=== PATIENT | male | born 1970 | race Caucasian/White ===

== ENCOUNTER → 2016-12-11 | Outpatient (CLI) | payer OTHER ==
--- NOTE | 2016-12-11 11:32 | ECHOS ---
DATE OF SERVICE: 12/11/2016 AGE: 46Y SEX: M HT: 68" WT: 365 lbs. Protocol Derrick: X Others: Stress Echo Stage: 3 Dur. of Exercise: 7:00 *Heart Rate Blood Pressure *Rest: 108 Rest: 160/68 * *Max. Achieved: 152 Maximum BP: 162/79 85% PMHR: 148 100% PMHR: 174 *METS: 8.3 INDICATIONS: Chest pain. MEDICATIONS: Lisinopril, simvastatin, fluoxetine, Flexeril. STRESS DATA: Pretesting physical examination showed a heart rate of 108, pressure is 160/68 mmHg. Baseline EKG showed sinus rhythm. The patient exercised on the treadmill according to Derrick protocol for a total 7 minutes and achieved 8.3 METs with max heart rate was 152, which is about 87% of maximum predicted heart rate. Maximum blood pressure was 162/79 mmHg. Clinically, the patient did not have any symptoms and the EKG did not show any significant ST or T-wave abnormalities consistent with ischemia. Echocardiogram images: On echocardiogram images from parasternal long axis view, parasternal short axis view, apical 4 chambers and apical 2 chamber views were obtained as the baseline images, at the peak of the heart rate, as well as on recovery and the echocardiogram images showed good augmentation of the left ventricular systolic function without any evidence of wall motion abnormalities consistent with ischemia. CONCLUSION: 1. Good exercise capacity. 2. Normal EKG in response to exercise. 3. Normal echocardiogram in response to exercise.
== END | disposition home or self-care (01) ==
LOC: RADNMMAIN 09:48
PROVIDERS: ATTEND Internal Medicine
DX: R07.9 Chest pain, unspecified (principal)
CPT/HCPCS: 93350; 93017; Q9957

== ENCOUNTER → 2017-11-07 | Outpatient (CLI) | payer BC ==
[2017-11-07 08:14] LABS: HCT 49.9 % (39.0-53.0); HGB 16.9 gm/dL (13.0-17.5); MCH 28.1 pg (25.0-35.0); MCHC 33.9 g/dL (31.0-37.0); MCV 82.9 fL (80.0-100.0); Mean Platelet Volume 6.7; Platelet Count 244 k/uL (150-450); RBC 6.02 m/uL (4.30-5.90); RDW 12.5 % (11.5-15.5); WBC 8.3 k/uL (3.8-10.6)
[2017-11-07 08:36] LABS: Anion Gap 12 mmol/L; Blood Urea Nitrogen 17 mg/dL (9-20); Carbon Dioxide 28 mmol/L (22-30); Chloride 101 mmol/L (98-107); Potassium 4.3 mmol/L (3.5-5.1); Sodium 141 mmol/L (137-145)
== END | disposition home or self-care (01) ==
LOC: LABPAT 07:04
PROVIDERS: ATTEND Internal Medicine Cardiovascular Disease
DX: Z01.812 Encounter for preprocedural laboratory examination (principal); I25.10 Atherosclerotic heart disease of native coronary artery without angina pectoris
CPT/HCPCS: 36415; 80051; 82565; 84520; 85027

== ENCOUNTER 2017-11-09 07:53 | Day surgery (SDC) | payer BC, OTHER ==
[~2017-11-09 07:53] MED LIST: ALPRAZolam 0.25 MG TAB PO PRN; ALPRAZolam 0.5 MG TAB PO PRN; ASPIRIN 325 MG TAB PO STA; ATORVASTATIN 80 MG TAB PO STA; NITROGLYCERIN SL TABS 0.4 MG TAB SUBLINGUAL PRN; SODIUM CHLORIDE 0.9% 1,000 ML in EMPTY BAG 1 BAG IV ONE
[2017-11-09 08:25] VITALS: PULSE 95; TEMP 98.5
[2017-11-09] MEDS ORDERED: IV FLUID CONTINUATION 900 ML IV ONE (08:58)
[2017-11-09] MEDS: fentaNYL (PF) 50 MCG/ML 2 ML AMP IV ONE ×2 (09:05→09:20)
[2017-11-09] MEDS ORDERED: MIDAZOLAM 2 MG/2 ML VIAL IV ONE (09:05)
[2017-11-09] MEDS ORDERED: LIDOCAINE 2% INJ 20 MG/ML SQ ONE ×4 (09:06→09:15)
[2017-11-09] MEDS ORDERED: IOHEXOL 350 MG/ML 125ML BOTTLE INJ ONE (09:28)
[2017-11-09] MEDS ORDERED: RX INFO: IV CONTRAST WAS GIVEN 1 EACH MISC MISCELLANE PRN (09:59)
[2017-11-09] MEDS ORDERED: SODIUM CHLORIDE 0.9% 1,000 ML IV SCH (10:00)
--- NOTE | 2017-11-09 10:38 | CC ---
CARDIAC CATHETERIZATION REPORT Referring physician is Dr. Durán. INDICATION: Unstable angina. This is a 47-year-old gentleman who presented to me with recurrent episodes of chest pain and was advised to undergo cardiac catheterization to rule out significant coronary artery disease. PROCEDURE NOTE: After obtaining informed consent, left heart catheterization and coronary angiogram were performed via the right femoral artery using standard Subhash catheters. The patient tolerated the procedure well without any obvious immediate complications. A femoral angiogram was performed and Angio-Seal was deployed for hemostasis. Patient received moderate conscious sedation and total sedation time was 15 minutes. FINDINGS: 1. HEMODYNAMICS: Left ventricular end-diastolic pressure is 14 to 16 mm. There is no significant gradient across the aortic valve. 2. LEFT VENTRICULOGRAM: Left ventriculogram has been performed in JONES position and shows a mildly enlarged left ventricle with normal LV function with an ejection fraction of 55%. 3. ANGIOGRAPHIC DATA. Left Main Coronary Artery: Left main coronary artery is a normal-sized vessel and is free of stenosis. Divides into left anterior descending coronary artery and circumflex coronary artery. LAD and its branches and circumflex coronary artery and its branches are free of significant stenosis. Right coronary artery is a large dominant vessel and is free of significant disease. CONCLUSIONS: 1. Normal coronary arteries. 2. Normal left ventricular end-diastolic pressures. 3. Mildly enlarged left ventricle with normal left ventricular function. MMODL / IJN: [id number] /
[2017-11-09 13:21] VITALS: RESP 20
[2017-11-09 15:27] VITALS: BP 140/69
== END 2017-11-09 15:10 | disposition home or self-care (01) ==
LOC: CATHCVL 07:53
PROVIDERS: ATTEND Internal Medicine Cardiovascular Disease
DX: R07.2 Precordial pain (principal); I10 Essential (primary) hypertension; E78.5 Hyperlipidemia, unspecified; Z88.2 Allergy status to sulfonamides; Z79.899 Other long term (current) drug therapy; Z82.49 Family history of ischemic heart disease and other diseases of the circulatory system
CPT/HCPCS: 93458; C1769 ×2; C1760; C1894; J2001; J2250; J3010; Q9967

== ENCOUNTER 2018-11-11 10:44 | Day surgery (SDC) | payer BC ==
[~2018-11-11 10:44] MED LIST changes: -ALPRAZolam 0.25 MG TAB PO PRN; -ALPRAZolam 0.5 MG TAB PO PRN; -ASPIRIN 325 MG TAB PO STA; -ATORVASTATIN 80 MG TAB PO STA; +LACTATED RINGERS 1,000 ML IV SCH; +LIDOCAINE 1% 20 ML VIAL (10MG/ML) FOR IV START INTRADERMA PRN; -NITROGLYCERIN SL TABS 0.4 MG TAB SUBLINGUAL PRN; -SODIUM CHLORIDE 0.9% 1,000 ML in EMPTY BAG 1 BAG IV ONE
[2018-11-11 11:14] VITALS: TEMP 98.7
[2018-11-11] MEDS ORDERED: fentaNYL (PF) 50 MCG/ML 2 ML AMP ONE (11:26)
[2018-11-11] MEDS ORDERED: LIDOCAINE 1% INJ 10MG/ML (20 ML MDV) ONE (11:26)
[2018-11-11] MEDS ORDERED: PROPOFOL 10 MG/ML 20 ML VIAL IV ONE (11:26)
--- NOTE | 2018-11-11 11:59 | P.PCN ---
Date of Procedure: 11/11/18 Procedure(s) Performed: Procedure: Total colonoscopy. Preoperative diagnosis: Screening for neoplasia, patient has history of polyps. Postoperative diagnosis: 1. Mild diverticulosis with no evidence of acute diverticulitis or strictures. 2. No polyps or tumors seen. Preparation: HalfLytely prep. Sedation: Was provided by anesthesia. Brief clinical history: The patient is a 48-year-old male who is scheduled for this evaluation because of history of polyps. His last exam was in 2011. The patient has tendency to constipation and reports pellet-like stools, but has no abdominal pains or bleeding. His mother had stomach issues but there is no family history of colon cancer. This evaluation is to rule out neoplasia.. Procedure: With the patient on his left lateral decubitus position and after informed consent and adequate sedation, the perianal area was inspected and it did not show any fissures or fistulas. There were no masses felt on digital rectal examination. The Olympus CFH 190L video colonoscope was then inserted in the rectum in the usual fashion and advanced to the cecum. There was occasional small diverticular orifices noted in the sigmoid and on the right side but there was no evidence of acute diverticulitis or strictures. The mucosa appeared healthy. No polyps or tumors were seen. I retroflexed the endoscope in the rectum before the endoscope was withdrawn. The patient tolerated the procedure well. Plan: The patient was reassured. Discussed dietary measures. He will follow up with you as planned and I recommended repeat exam in 5 years.
[2018-11-11 12:30] VITALS: BP 110/57; PULSE 85; RESP 18
== END 2018-11-11 12:53 | disposition home or self-care (01) ==
LOC: ORWHC2ENDO 10:44
DX: Z12.11 Encounter for screening for malignant neoplasm of colon (principal); K57.30 Diverticulosis of large intestine without perforation or abscess without bleeding; K59.00 Constipation, unspecified; Z86.010 Personal history of colon polyps; Z83.71 Family history of colonic polyps; I10 Essential (primary) hypertension; G47.33 Obstructive sleep apnea (adult) (pediatric); F31.9 Bipolar disorder, unspecified; E66.01 Morbid (severe) obesity due to excess calories; Z99.89 Dependence on other enabling machines and devices; Z79.899 Other long term (current) drug therapy; Z88.2 Allergy status to sulfonamides; Z68.41 Body mass index [BMI] 40.0-44.9, adult
CPT/HCPCS: J2001; J3010; J2704; G0121

== ENCOUNTER 2019-03-18 03:00 | Observation (INO) | payer BC ==
[2019-03-18] MEDS ORDERED: ASPIRIN 81 MG PO STA (03:14)
--- NOTE | 2019-03-18 03:29 | XR ---
EXAM: XR Chest, 2 Views CLINICAL HISTORY: ITS.REASON XR Reason: Chest Pain TECHNIQUE: Frontal and lateral views of the chest. COMPARISON: No relevant prior studies available. FINDINGS: Lungs: No consolidation or mass. Pleural space: No effusion. Heart: No cardiomegaly. Mediastinum: Unremarkable. Bones/joints: No acute findings. IMPRESSION: No acute cardiopulmonary process.
[2019-03-18 04:02] LABS: Basophils % (A) 0 %; Eosinophils # (A) 0.1 k/uL (0-0.7); Eosinophils % (A) 1 %; HCT 52.6 % (39.0-53.0); Lymphocytes % (A) 24 %; MCHC 34.3 g/dL (31.0-37.0); MCV 81.7 fL (80.0-100.0); Mean Platelet Volume 7.3; Monocytes # (A) 0.5 k/uL (0-1.0); Monocytes % (A) 6 %; Neutrophils # (A) 5.5 k/uL (1.3-7.7); Neutrophils % (A) 66 %; Platelet Count 228 k/uL (150-450); RBC 6.45 m/uL (4.30-5.90); RDW 14.5 % (11.5-15.5); WBC 8.4 k/uL (3.8-10.6)
[2019-03-18 04:16] LABS: ALT 18 U/L (21-72); AST 22 U/L (17-59); Albumin 4.8 g/dL (3.5-5.0); Alkaline Phosphatase 102 U/L (38-126); Anion Gap 8 mmol/L; Blood Urea Nitrogen 20 mg/dL (9-20); Carbon Dioxide 25 mmol/L (22-30); Chloride 106 mmol/L (98-107); Glucose 93 mg/dL (74-99); Magnesium 2.1 mg/dL (1.6-2.3); Potassium 4.5 mmol/L (3.5-5.1); Sodium 139 mmol/L (137-145); Total Bilirubin 0.7 mg/dL (0.2-1.3); Total Protein 7.7 g/dL (6.3-8.2)
[2019-03-18 04:23] LABS: D-Dimer 0.44 mg/L FEU (<0.60); INR 1.1 (<1.2); Partial Thromboplastin Time 25.6 sec (22.0-30.0); Prothrombin Time 11.2 sec (9.0-12.0)
--- NOTE | 2019-03-18 04:57 | ED ---
SOB HPI - General Source: patient, EMS Mode of arrival: EMS Limitations: no limitations, language barrier <Molly Johnson - Last Filed: 03/18/19 05:03> <Eli Boucher - Last Filed: 03/18/19 22:16> - General Chief Complaint: Shortness of Breath Stated Complaint: SEAN, Weakness Time Seen by Provider: 03/18/19 03:03 - History of Present Illness Initial Comments: 48-year-old male patient with past medical history significant for hyperlipidemia and hypertension, presents to the emergency department today for evaluation of shortness of breath and chest pain. Patient states symptoms started approximately an hour and a half ago. Patient states he was at work performing his usual job when he had sudden onset of symptoms. Patient states that he feels like he is unable to catch his breath. States he is having some aching discomfort to the left side of his chest. States it does radiate through to his back and is worsened with deep breathing. Patient denies any dizziness or weakness. Denies any sweats, nausea, or vomiting. Patient does have family history of coronary artery disease, his father had CABG 2. Patient denies smoking history. Patient denies any recent rash, abdominal pain, diarrhea, constipation, back pain, numbness, tingling, hematuria, dysuria, urinary urgency, urinary frequency, headache, visual changes, or any other complaints. (Molly Johnson) - Related Data Home Medications Medication Instructions Recorded Confirmed Lisinopril [Zestril] 10 mg PO BID 11/08/17 03/18/19 Simvastatin [Zocor] 20 mg PO HS 11/08/17 03/18/19 FLUoxetine HCL [PROzac] 60 mg PO DAILY 03/18/19 03/18/19 Ziprasidone [Geodon] 20 mg PO BID 03/18/19 03/18/19 Previous Rx's Medication Instructions Recorded Aspirin 81 mg PO DAILY #1 chewable 03/18/19 Allergies Allergy/AdvReac Type Severity Reaction Status Date / Time Sulfa (Sulfonamide Allergy Unknown Verified 03/18/19 07:18 Antibiotics) Review of Systems ROS Other: All systems not noted in ROS Statement are negative. <Molly Johnson - Last Filed: 03/18/19 05:03> ROS Other: All systems not noted in ROS Statement are negative. <Eli Boucher - Last Filed: 03/18/19 22:16> ROS Statement: Those systems with pertinent positive or pertinent negative responses have been documented in the HPI. Past Medical History Past Medical History: Chest Pain / Angina, Hyperlipidemia, Hypertension History of Any Multi-Drug Resistant Organisms: None Reported Past Surgical History: Heart Catheterization Additional Past Surgical History / Comment(s): Cardiac cath no stent 2017 Past Psychological History: Anxiety, Bipolar, Depression Smoking Status: Never smoker Past Alcohol Use History: None Reported Past Drug Use History: None Reported <Molly Johnson M - Last Filed: 03/18/19 05:03> General Exam Limitations: no limitations, language barrier General appearance: alert, in no apparent distress, other (Physical well- developed, well-nourished adult male patient in no acute distress. Vital signs upon presentation are temperature 98.2F, pulse 96, respirations 21, blood pressure 124/79, pulse ox 97% on room air.) Eye exam: Present: normal appearance, PERRL, EOMI. Absent: scleral icterus, conjunctival injection, periorbital swelling ENT exam: Present: normal exam, normal oropharynx, mucous membranes moist Respiratory exam: Present: normal lung sounds bilaterally. Absent: respiratory distress, wheezes, rales, rhonchi, stridor Cardiovascular Exam: Present: regular rate, normal rhythm, normal heart sounds. Absent: systolic murmur, diastolic murmur, rubs, gallop, clicks GI/Abdominal exam: Present: soft, normal bowel sounds. Absent: distended, tenderness, guarding, rebound, rigid Neurological exam: Present: alert, oriented X3, CN II-XII intact Psychiatric exam: Present: normal affect, normal mood Skin exam: Present: warm, dry, intact, normal color. Absent: rash <Molly Johnson M - Last Filed: 03/18/19 05:03> Course Vital Signs 03/18/19 03/18/19 03/18/19 03:01 03:08 03:55 Temperature 98.2 F Pulse Rate 96 89 Pulse Rate [ Right Pulse Oximetery] Respiratory 19 Rate Blood Pressure 124/79 124/79 Blood Pressure [Right Arm] O2 Sat by Pulse 97 99 Oximetry 03/18/19 03/18/19 03/18/19 04:00 04:30 05:00 Temperature Pulse Rate 87 92 92 Pulse Rate [ Right Pulse Oximetery] Respiratory 18 18 16 Rate Blood Pressure 122/82 122/81 129/85 Blood Pressure [Right Arm] O2 Sat by Pulse 98 97 98 Oximetry 03/18/19 03/18/19 07:13 07:15 Temperature 98.1 F Pulse Rate Pulse Rate [ 89 Right Pulse Oximetery] Respiratory 18 18 Rate Blood Pressure Blood Pressure 137/94 [Right Arm] O2 Sat by Pulse 95 Oximetry Medical Decision Making - Lab Data Result diagrams: 03/18/19 03:33 03/18/19 03:33 - EKG Data -: EKG Interpreted by Ri - Radiology Data Radiology results: report reviewed, image reviewed <Molly Johnson - Last Filed: 03/18/19 05:03> - Lab Data Result diagrams: 03/18/19 03:33 03/18/19 03:33 <Eli Boucher - Last Filed: 03/18/19 22:16> - Medical Decision Making 48-year-old male patient presents to the emergency department today for evaluation of shortness of breath and chest pain. Physical examination reveals clear equal lung sounds. Pain is not reproducible to palpation. Labs reviewed and showed negative troponin, negative d-dimer, negative BNP. Chest x-ray showed no acute cardio pulmonary process. EKG showed normal sinus rhythm. Patient does have family history of coronary artery disease, personal history of hypertension and hyperlipidemia. Upon reevaluation patient still exists experiencing chest discomfort and shortness of breath so we will admit for observation and evaluation by cardiology. Patient is agreeable to this plan. (Molly Johnson) I personally saw and examined the patient. I reviewed and agree with the mid- level provider findings including all diagnostic interpretations and treatment plans. (Eli Boucher) - Lab Data Lab Results 03/18/19 03/18/19 03/18/19 Range/Units 03:33 03:33 03:33 WBC 8.4 (3.8-10.6) k/uL RBC 6.45 H (4.30-5.90) m/uL Hgb 18.0 H (13.0-17.5) gm/dL Hct 52.6 (39.0-53.0) % MCV 81.7 (80.0-100.0) fL MCH 28.0 (25.0-35.0) pg MCHC 34.3 (31.0-37.0) g/dL RDW 14.5 (11.5-15.5) % Plt Count 228 (150-450) k/uL Neutrophils % 66 % Lymphocytes % 24 % Monocytes % 6 % Eosinophils % 1 % Basophils % 0 % Neutrophils # 5.5 (1.3-7.7) k/uL Lymphocytes # 2.0 (1.0-4.8) k/uL Monocytes # 0.5 (0-1.0) k/uL Eosinophils # 0.1 (0-0.7) k/uL Basophils # 0.0 (0-0.2) k/uL PT 11.2 (9.0-12.0) sec INR 1.1 (<1.2) APTT 25.6 (22.0-30.0) sec D-Dimer 0.44 (<0.60) mg/L FEU Sodium 139 (137-145) mmol/L Potassium 4.5 (3.5-5.1) mmol/L Chloride 106 (98-107) mmol/L Carbon Dioxide 25 (22-30) mmol/L Anion Gap 8 mmol/L BUN 20 (9-20) mg/dL Creatinine 0.81 (0.66-1.25) mg/dL Est GFR (CKD-EPI)AfAm >90 (>60 ml/min/1.73 sqM) Est GFR (CKD-EPI)NonAf >90 (>60 ml/min/1.73 sqM) Glucose 93 (74-99) mg/dL Calcium 10.0 (8.4-10.2) mg/dL Magnesium 2.1 (1.6-2.3) mg/dL Total Bilirubin 0.7 (0.2-1.3) mg/dL AST 22 (17-59) U/L ALT 18 L (21-72) U/L Alkaline Phosphatase 102 (38-126) U/L Troponin I (0.000-0.034) ng/mL NT-Pro-B Natriuret Pep pg/mL Total Protein 7.7 (6.3-8.2) g/dL Albumin 4.8 (3.5-5.0) g/dL 05/21/19 05/21/19 Range/Units 03:33 03:33 WBC (3.8-10.6) k/uL RBC (4.30-5.90) m/uL Hgb (13.0-17.5) gm/dL Hct (39.0-53.0) % MCV (80.0-100.0) fL MCH (25.0-35.0) pg MCHC (31.0-37.0) g/dL RDW (11.5-15.5) % Plt Count (150-450) k/uL Neutrophils % % Lymphocytes % % Monocytes % % Eosinophils % % Basophils % % Neutrophils # (1.3-7.7) k/uL Lymphocytes # (1.0-4.8) k/uL Monocytes # (0-1.0) k/uL Eosinophils # (0-0.7) k/uL Basophils # (0-0.2) k/uL PT (9.0-12.0) sec INR (<1.2) APTT (22.0-30.0) sec D-Dimer (<0.60) mg/L FEU Sodium (137-145) mmol/L Potassium (3.5-5.1) mmol/L Chloride (98-107) mmol/L Carbon Dioxide (22-30) mmol/L Anion Gap mmol/L BUN (9-20) mg/dL Creatinine (0.66-1.25) mg/dL Est GFR (CKD-EPI)AfAm (>60 ml/min/1.73 sqM) Est GFR (CKD-EPI)NonAf (>60 ml/min/1.73 sqM) Glucose (74-99) mg/dL Calcium (8.4-10.2) mg/dL Magnesium (1.6-2.3) mg/dL Total Bilirubin (0.2-1.3) mg/dL AST (17-59) U/L ALT (21-72) U/L Alkaline Phosphatase (38-126) U/L Troponin I <0.012 (0.000-0.034) ng/mL NT-Pro-B Natriuret Pep 14 pg/mL Total Protein (6.3-8.2) g/dL Albumin (3.5-5.0) g/dL - EKG Data EKG Comments: EKG obtained at 0355 shows normal sinus rhythm with a ventricular rate of 90, OR interval 164, QRS duration 96, QT 374, QTC 447. No evidence of ST elevation or depression. (Molly Johnson) - Radiology Data Two-view x-ray of the chest is obtained. Report was reviewed in its entirety. Impression by Dr. Hammond shows no acute cardio pulmonary process. (Molly Johnson) Disposition Decision to Admit Reason: Admit from EC Decision Date: 03/18/19 Decision Time: 05:06 <Molly Johnson - Last Filed: 03/18/19 05:03> <Eli Boucher - Last Filed: 03/18/19 22:16> Clinical Impression: Chest pain, Dyspnea Disposition: ADMITTED IP TO THIS [facility] Condition: Serious
[2019-03-18] MEDS ORDERED: NALOXONE 0.4 MG/ML 1 ML VIAL IV PRN (05:01)
[2019-03-18 07:19] VITALS: RESP 18
--- NOTE | 2019-03-18 08:52 | P.CRDCN ---
History of Present Illness History of present illness: This is a pleasant 48-year-old male past medical history significant for hypertension, dyslipidemia, depression, anxiety and obstructive sleep apnea. He follows in the office with Dr. Shirley. He underwent cardiac catheterization in 2018 revealed normal coronary arteries with no evidence of obstructive disease. We've been asked to see him in consultation secondary chest discomf ort. He states last night while at work and became acutely short of breath, diaphoretic and overall generally weak and he felt a tight sensation in the midsternal region that was worse when he took a deep breath. This persisted for approximately 2 hours when he decided to come to the hospital for evaluation. Slowly over the course of the next hour rales sitting in the emergency department his shortness of breath and chest discomfort started to subside but did not entirely go away. He still continues to feel mildly short of breath at rest continues to have a very slight discomfort when he takes a deep breath. He denies associated palpitations, nausea, vomiting, dizziness or diaphoresis. He states he recently lost his mother. This year and has been making adjustments to his depression medications. He states this has been happening intermittently since the passing of his mom he feels as though he is possibly having anxiety attacks. EKG reveals sinus mechanism with no acute ST or T wave abnormalities noted 2. Chest x-ray is negative for an acute cardiopulmonary process. Laboratory data reviewed, WBC 8.4, hemoglobin 18, platelets 228, d-dimer 0.44, sodium 139, potassium 4.5, creatinine 0.81, magnesium 2.1, troponin negative 1, and she proBNP 14. Current cardiac medications include simvastatin 20 mg daily and lisinopril 10 mg twice a day. At the time of my exam: CONSTITUTIONAL: Denies fever. Denies chills. EYES: Denies blurred vision. Denies vision changes. Denies eye pain. EARS, NOSE, MOUTH & THROAT: Denies headache. Denies sore throat. Denies ear pain. CARDIOVASCULAR: Complains of pleuritic chest pain. Complains of shortness of breath. Denies orthopnea. Denies PND. Denies palpitations. RESPIRATORY: Denies cough. GASTROINTESTINAL: Denies abdominal pain. Denies diarrhea. Denies constipation. Denies nausea. Denies vomiting. MUSCULOSKELETAL: Denies myalgias. INTEGUMENTARY: Denies pruitis. Denies rash. NEUROLOGIC: Denies numbness. Denies tingling. Denies weakness. PSYCHIATRIC: Denies anxiety. Denies depression. ENDOCRINE: Denies fatigue. Denies weight change. Denies polydipsia. Denies polyurina. GENITOURINARY: Denies burning, hematuria or urgency with micturation. HEMATOLOGIC: Denies history of anemia. Denies bleeding. Blood pressure 137/94 heart rate 89 afebrile maintaining oxygen saturation on room air GENERAL: This is a 48-year-old male in no apparent distress at the time of my examination. Obese. HEENT: Head is atraumatic, normocephalic. Pupils are equal, round. Sclerae anicteric. Conjunctivae are clear. Mucous membranes of the mouth are moist. Neck is supple. There is no jugular venous distention. No carotid bruit is heard. LUNGS: Clear to auscultation no wheezes, rales or rhonchi. No chest wall tenderness is noted on palpation or with deep breathing. HEART: Regular rate and rhythm without murmurs, rubs or gallops. S1 and S2 heard. ABDOMEN: Soft, nontender. Bowel sounds are heard. No organomegaly noted. EXTREMITIES: No evidence of peripheral edema and no calf tenderness noted. VASCULAR: Radial and dorsalis pedis pulses palpated, no evidence of clubbing. NEUROLOGIC: Patient is awake, alert and oriented x3. ASSESSMENT Pleuritic chest pain with shortness of breath. Atypical for angina. Normal cardiac catheterization October 2017. Hypertension Dyslipidemia Depression/anxiety Morbid obesity, BMI 42 PLAN Symptoms are atypical for angina with a normal catheterization just over a year ago unlikely to be related to obstructive coronary artery disease. Check lipid profile. Obtain 2-D echocardiogram and Doppler study to assess cardiac structure and function. No further cardiac workup at this time. Follow-up with Dr. Shirley upon discharge. Thank you kindly for this consultation. Nurse Practitioner note has been reviewed, I agree with a documented findings and plan of care. Patient was seen and examined. Past Medical History Past Medical History: Chest Pain / Angina, Hyperlipidemia, Hypertension History of Any Multi-Drug Resistant Organisms: None Reported Past Surgical History: Heart Catheterization Additional Past Surgical History / Comment(s): Cardiac cath no stent 2017 Past Psychological History: Anxiety, Bipolar, Depression Smoking Status: Never smoker Past Alcohol Use History: None Reported Past Drug Use History: None Reported - Past Family History Mother Family Medical History: Cancer Additional Family Medical History / Comment(s): Mother of thyroid cancer at the age of 80yrs. Father Family Medical History: Coronary Artery Disease (CAD) Additional Family Medical History / Comment(s): Father had a pacemaker. He had a 2 vessel CABG at the age of 77yrs and suffered a stroke with surgery, he 2 yrs later. Medications and Allergies Home Medications Medication Instructions Recorded Confirmed Type Lisinopril [Zestril] 10 mg PO BID 11/08/17 03/18/19 History Simvastatin [Zocor] 20 mg PO HS 11/08/17 03/18/19 History FLUoxetine HCL [PROzac] 60 mg PO DAILY 03/18/19 03/18/19 History Ziprasidone [Geodon] 20 mg PO BID 03/18/19 03/18/19 History Allergies Allergy/AdvReac Type Severity Reaction Status Date / Time Sulfa (Sulfonamide Allergy Unknown Verified 03/18/19 07:18 Antibiotics) Physical Exam Vitals: Vital Signs Temp Pulse Pulse Resp BP BP Pulse Ox 03/18/19 07:15 98.1 F 89 18 137/94 95 03/18/19 07:13 18 03/18/19 05:00 92 16 129/85 98 03/18/19 04:30 92 18 122/81 97 03/18/19 04:00 87 18 122/82 98 03/18/19 03:55 89 19 124/79 99 03/18/19 03:08 22 03/18/19 03:01 98.2 F 96 21 124/79 97 Intake and Output 03/17/19 03/18/19 03/18/19 22:59 06:59 14:59 Other: Weight 127.006 kg Results 03/18/19 03:33 03/18/19 03:33 Cardiac Enzymes 03/18/19 03/18/19 Range/Units 03:33 03:33 AST 22 (17-59) U/L Troponin I <0.012 (0.000-0.034) ng/mL Coagulation 03/18/19 Range/Units 03:33 PT 11.2 (9.0-12.0) sec APTT 25.6 (22.0-30.0) sec CBC 03/18/19 Range/Units 03:33 WBC 8.4 (3.8-10.6) k/uL RBC 6.45 H (4.30-5.90) m/uL Hgb 18.0 H (13.0-17.5) gm/dL Hct 52.6 (39.0-53.0) % Plt Count 228 (150-450) k/uL Comprehensive Metabolic Panel 03/18/19 Range/Units 03:33 Sodium 139 (137-145) mmol/L Potassium 4.5 (3.5-5.1) mmol/L Chloride 106 (98-107) mmol/L Carbon Dioxide 25 (22-30) mmol/L BUN 20 (9-20) mg/dL Creatinine 0.81 (0.66-1.25) mg/dL Glucose 93 (74-99) mg/dL Calcium 10.0 (8.4-10.2) mg/dL AST 22 (17-59) U/L ALT 18 L (21-72) U/L Alkaline Phosphatase 102 (38-126) U/L Total Protein 7.7 (6.3-8.2) g/dL Albumin 4.8 (3.5-5.0) g/dL Current Medications Generic Name Dose Route Start Last Admin Trade Name Freq PRN Reason Stop Dose Admin Aspirin 325 mg 03/18/19 09:00 Aspirin PO DAILY CHRIS Naloxone HCl 0.2 mg 03/18/19 05:01 Narcan IV Q2M PRN Opioid Reversal Intake and Output 03/17/19 03/18/19 03/18/19 22:59 06:59 14:59 Other: Weight 127.006 kg 03/18/19 03:33 03/18/19 03:33
[2019-03-18] MEDS ORDERED: ASPIRIN 325 MG TAB PO SCH (09:00)
[2019-03-18 09:18] LABS: Cholesterol 124 mg/dL (<200); HDL Cholesterol 37 mg/dL (40-60); LDL Cholesterol,Calculated 70 mg/dL (0-99); Triglycerides 86 mg/dL (<150)
[2019-03-18 11:08] VITALS: BP 126/87; PULSE 96; TEMP 98.5
--- NOTE | 2019-03-18 12:51 | ECHOF ---
Referral Reason:cp MEASUREMENTS -------- HEIGHT: 172.7 cm WEIGHT: 127.0 kg BP: 137/94 RVIDd: 4.2 cm (< 3.3) IVSd: 1.5 cm (0.6 - 1.1) LVIDd: 4.7 cm (3.9 - 5.3) LVPWd: 1.5 cm (0.6 - 1.1) IVSs: 1.7 cm LVIDs: 3.2 cm LVPWs: 1.9 cm LAESV Index (A-L): 11.14 ml/m Ao Diam: 2.9 cm (2.0 - 3.7) AV Cusp: 1.7 cm (1.5 - 2.6) LA Diam: 4.0 cm (2.7 - 3.8) MV EXCURSION: 17.961 mm (> 18.000) MV EF SLOPE: 123 mm/s (70 - 150) EPSS: 0.9 cm MV E Dayron: 1.00 m/s MV DecT: 188 ms MV A Dayron: 0.86 m/s MV E/A Ratio: 1.16 RAP: 5.00 mmHg RVSP: 11.59 mmHg FINDINGS -------- Sinus rhythm. This was a technically adequate study. The left ventricular size is normal. There is moderate concentric left ventricular hypertrophy. O verall left ventricular systolic function is normal with, an EF between 55 - 60 %. The right ventricle is normal in size. The left atrial size is normal. Normal LA size by volume 22+/-6 ml/m2. The right atrial size is normal. Interatrial and interventricular septum intact. The aortic valve is trileaflet and appears structurally normal. There is trace mitral regurgitation. Trace tricuspid regurgitation present. The pulmonic valve is normal. The aortic root size is normal. IVC Not well visulized. There is no pericardial effusion. CONCLUSIONS -------- 1. Sinus rhythm. 2. This was a technically adequate study. 3. The left ventricular size is normal. 4. There is moderate concentric left ventricular hypertrophy. 5. Overall left ventricular systolic function is normal with, an EF between 55 - 60 %. 6. The right ventricle is normal in size. 7. The left atrial size is normal. 8. Normal LA size by volume 22+/-6 ml/m2. 9. The right atrial size is normal. 10. Interatrial and interventricular septum intact. 11. The aortic valve is trileaflet and appears structurally normal. 12. There is trace mitral regurgitation. 13. Trace tricuspid regurgitation present. 14. The pulmonic valve is normal. 15. The aortic root size is normal. 16. IVC Not well visulized. 17. There is no pericardial effusion. A AND P MECHANIC: Vi Rhodes RDCS
--- NOTE | 2019-03-18 20:57 | HP ---
HISTORY AND PHYSICAL HISTORY AND PHYSICAL AND DISCHARGE SUMMARY COMBINED: DATE OF ADMISSION: 03/18/2019 DATE OF SERVICE: 03/18/2019 DATE OF DISCHARGE: 03/18/2019. PRESENTING COMPLAINT: Chest pain. HISTORY OF PRESENTING COMPLAINT: This is a pleasant 48-year-old patient who follows with Dr. Karl Durán. Chronic stable medical conditions include hypertension, GERD, obstructive sleep apnea, uses CPAP, and diverticulosis. The patient was at work yesterday and felt a bit congested in the chest, a little bit short of breath, with some nonspecific chest pain. There was no edema of the legs. There was some perspiration. No dizziness. No lightheadedness. No fever. No chills. No cough. 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 The patient is otherwise pretty active. Patient did have a cardiac cath in October of last year that showed normal coronaries. The patient was admitted to rule out a cardiac cause. Subsequently today this morning when I saw the patient he was feeling much better. REVIEW OF SYSTEMS: CONSTITUTIONAL: None. HEENT: None. RESPIRATORY: As above. CARDIOVASCULAR: As above. GASTROINTESTINAL: None. GENITOURINARY: None. MUSCULOSKELETAL: None. DERMATOLOGICAL: None. HEMATOLOGICAL: None. LYMPHATICS: None. PSYCHIATRY: None. NEUROLOGICAL: None. PAST MEDICAL HISTORY: 1. Hyperlipidemia. 2. Hypertension. 3. Obstructive sleep apnea. Uses CPAP. 4. Colon polyps. 5. Chronic diverticulosis. PAST SURGICAL HISTORY: Cardiac catheterization in October 2017 that was normal. PSYCH HISTORY: Anxiety, bipolar. SOCIAL HISTORY: with 3 kids. Works in a factory. Does not smoke or drink alcohol. Denies use of recreational drugs. FAMILY HISTORY: Mother of thyroid cancer. HOME MEDICATIONS: 1. Geodon 20 mg b.i.d. 2. Zocor 20 mg at bedtime. 3. Zestril 10 mg p.o. b.i.d. 4. Prozac 60 mg p.o. daily. 5. Aspirin 81 mg p.o. daily. ALLERGIES: SULFA. PHYSICAL EXAMINATION: Temperature 98.5, pulse 96, respiration 18, blood pressure 126/87, pulse ox 95% on room air. GENERAL APPEARANCE: Well built; BMI 42.6. Sitting up, awake. EYES: Pupils equal. Conjunctivae normal. HEENT: External appearance of nose and ears normal. Oral cavity normal. NECK: JVD not raised. Mass not palpable. RESPIRATORY: Effort normal. Lungs are clear. LUNGS: Fair air entry. CARDIOVASCULAR: First and second sounds normal. No edema. ABDOMEN: Soft, non-tender. Liver and spleen not palpable. LYMPHATIC: No lymph node palpable in neck or axillae. PSYCHIATRY: Alert and oriented x3. Mood and affect normal. NEUROLOGICAL: Pupils equal. Cranial nerves grossly intact. Power and sensation grossly intact. INVESTIGATIONS: White count 8.4, hemoglobin 18, platelets 228, potassium 4.5. BUN and creatinine are normal. LDL is 70. EKG tracing, personally reviewed by me, shows normal sinus rhythm. Chest x-ray film, personally reviewed by me, shows borderline cardiomegaly and some elevated right diaphragm. Two-D echocardiogram shows moderate concentric left ventricular hypertrophy with a systolic function of 55% to 60%. ASSESSMENT: 1. chest pain, probably from acute bronchitis with pleuritic chest pain in a patient who had a cardiac catheterization over a year ago that was essentially normal. 2. Morbid obesity with body mass index of 42.6. 3. Essential hypertension. 4. Hypertensive heart disease. 5. Hyperlipidemia. 6. Obstructive sleep apnea. Uses BiPAP machine. 7. Bipolar disorder, controlled. 8. Colonic diverticulosis. PLAN: Home medications are resumed. Patient was seen by Cardiology. From their standpoint, no further cardiac workup. The patient can be discharged. Care was discussed with the patient. He was advised to lose weight. DISCHARGE MEDICATIONS: Unchanged except aspirin 81 mg a day was added. Follow up with Dr. Karl Durán in 3 days. Follow up with Dr. Nereida Shirley on 04/01/2019. This is both a history and physical and a discharge summary on this patient. MMODL / IJN: [id number] /
--- NOTE | 2019-03-18 22:33 | DS ---
DISCHARGE SUMMARY DATE OF ADMISSION: 03/18/2019 DATE OF DISCHARGE: 03/18/2019 Please refer to my H and P, which is both a history and physical and a discharge summary on this patient. MMODL / IJN: [id number] /
== END 2019-03-18 13:45 | disposition home or self-care (01) ==
LOC: EC 03:00 → 1SOBS 06:52
PROVIDERS: ADMIT Hospitalist; ATTEND Hospitalist
DX: R07.89 Other chest pain (principal); R06.02 Shortness of breath; R07.81 Pleurodynia; I11.9 Hypertensive heart disease without heart failure; E78.5 Hyperlipidemia, unspecified; K57.30 Diverticulosis of large intestine without perforation or abscess without bleeding; G47.33 Obstructive sleep apnea (adult) (pediatric); Z99.89 Dependence on other enabling machines and devices; F31.9 Bipolar disorder, unspecified; F41.9 Anxiety disorder, unspecified; R61 Generalized hyperhidrosis; R53.1 Weakness; E66.01 Morbid (severe) obesity due to excess calories; Z68.41 Body mass index [BMI] 40.0-44.9, adult; Z79.82 Long term (current) use of aspirin; Z79.899 Other long term (current) drug therapy; Z88.2 Allergy status to sulfonamides; Z86.010 Personal history of colon polyps; Z82.49 Family history of ischemic heart disease and other diseases of the circulatory system; Z80.8 Family history of malignant neoplasm of other organs or systems; Z82.3 Family history of stroke
CPT/HCPCS: 99285; 36415; 93005; 93306; 85379; 83880; 80061; 80053; 83735; 84484; 85025; 85610; 85730; 71046; G0378

== ENCOUNTER 2019-05-21 | Outpatient (CLI) | payer BC ==
--- NOTE | 2019-05-27 10:43 | SLS ---
SLEEP STUDY CPAP TITRATION REPORT: DATE OF SERVICE: 05/21/2019 This is a 49-year-old male patient with obstructive sleep apnea, severe, currently on a BiPAP pressure of 20/16 cm of water. The patient was experiencing hypersomnia and he came to see me in consultation. He was averaging around 7 hours on his BiPAP machine and despite that, he was not getting the benefit that he is supposed to. He was somnolent and sleepy and he needed further workup and I was considering either suboptimal BiPAP pressure or impaired machine efficiency. Note that the patient has had interval 50 pounds weight gain and his BMI is 39.4. He has hypertension hyperlipidemia diabetes. He has hypertension hyperlipidemia depression and bipolar disorder. I offered this patient a BiPAP titration. His machine needed to be updated. PERTINENT PHYSICAL FINDINGS: Height is 5,7, weight is 252, and BMI is 39.6. TECHNICAL DESCRIPTION: The sleep evaluation of the patient consisted of clinical polysomnography, nocturnal respiratory battery, left and right anterior tibialis surface electromyography. The standard montage for the clinical polysomnography included the EEG, EOG, EMG, and EKG. Respiratory battery included measurements of nasal/buccal airflow, thoracic, and/or abdominal effort and intercostal surface EMG. Nocturnal oxyhemoglobin saturations were obtained by finger oximetry. Digital video and audio monitoring were done throughout the entire night to check or parasomnias. Step-burks titration with positive airway pressure was utilized during the study to control the respiratory events. STUDY OVERVIEW: Total time in bed 6 hours on 29 minutes, total sleep time is 4 hours and 10 minutes. Sleep efficiency was 64.2%, latency to sleep onset, 53.6 minutes. Latency to REM sleep is 80.5 minutes and the sleep architecture was characterized by 29.0% stage I, 58% stage II, 0% stage III, and 13% REM sleep. SLEEP CONTINUITY SUMMARY: There was a total of 121 arousals with an index of 29.0. CPAP TITRATION SUMMARY: The patient was started on CPAP with a pressure of 7 cm of water and the patient was raised up to 11 cm of water. He was also given a trial with BiPAP, pressures of 9/5 and 11/8 cm of water. I carefully reviewed the titration taking into account the patient's sleep stage and body position. The patient was in a supine body position and the patient was studied in non-REM sleep and he has also brief REMS. I do not think there is a need for a higher BiPAP pressures. I think the patient would do well just with CPAP therapy. Based on my careful review, the patient was doing well with a CPAP pressure of 11 cm of water and this will be my starting pressure for this patient. Will be offered this new CPAP unit instead of BiPAP therapy. Oxygenation improved and the patient did not have any significant desaturation while being on CPAP. CARDIAC SUMMARY: Average heart rate was 77, minimum heart rate was 67, maximum heart rate was 98, rhythm was sinus. LIMB MOVEMENT SUMMARY: A total of 53 periodic limb movements with an index of 12.7, no arousals related to periodic limb movement activity. IMPRESSION: 1. Obstructive sleep apnea. Suboptimal treated suboptimal treatment with BiPAP. The patient underwent an adequate CPAP titration. 2. Chronic hypersomnia and sleepiness. 3. Periodic limb movement, mild not related to arousals. 4. Hypertension. 5. Hyperlipidemia. 6. Depression. 7. Bipolar disorder. 8. Obesity with a body mass index of 39.6. PLAN: 1. Initiate CPAP therapy at a pressure of 11 cm of water. 2. Offer the patient the appropriate mask interface, he would prefer dream wear under the nose mask with a medium-size frame and a medium-size nose piece. 3. Encourage weight loss. 4. See me back in 30 to 90 days to assess clinical response and compliance. and will make further recommendations accordingly. WAQAR / TY: [id number] /
== END 2019-05-21 17:24 | disposition home or self-care (01) ==
CPT/HCPCS: 95811

== ENCOUNTER → 2019-07-29 | Outpatient (CLI) | payer BC ==
--- NOTE | 2019-07-29 23:32 | PN ---
PROGRESS NOTE This patient is coming in for a compliancy check regarding his new CPAP machine. The patient was titrated to a CPAP pressure of 11 cm of water. On today's evaluation, the patient has a Resmed air sense unit which is an auto set and it is set at a pressure of 11 cm of water. The patient was given a DreamWear nose mask. He remains extremely compliant. He has been averaging around 9.8 hours of CPAP use per night and his CPAP use for more than 4 hours is above 90%. His AHI is down to 1.6 and his leak around 22 L per minute. His Meservey score is down to 5. No snoring. No complaints. He is benefitting from the treatment and he feels great and he is not having any complaints. However, he tells me that he likes his original nose pillows rather than Dream wear. REVIEW OF SYSTEMS: Fourteen-point review of system was done. Positive findings are mentioned in history of present illness. PHYSICAL EXAMINATION: BP is 108/62, pulse 92, respirations 16, temperature 97.1, weight is 238. Saturation 98% on room air. GENERAL APPEARANCE: Calm, comfortable. Head is atraumatic, normocephalic. NECK: Supple. No JVD. No goiter or neck mass. LUNGS: Clear to auscultation. HEART: Heart sounds are regular rate and rhythm. Normal S1, S2. No S3, no S4. No murmurs. ABDOMEN: Soft, nontender. No organomegaly. EXTREMITIES: No edema. No cyanosis or clubbing. Neurologic is alert and oriented x3. No focal neurological deficits. PSYCHIATRIC: Negative for anxiety or depression. Skin is negative for any wounds or ulceration. IMPRESSION: 1. Obstructive sleep apnea. Currently utilizing CPAP at a pressure of 11 cm of water with excellent clinical response and compliance. 2. Hypersomnia, improved. Meservey score is down to 5. 3. History of depression/bipolar disorder, currently well treated. 4. Hypertension. 5. Hyperlipidemia. 6. History of periodic limb movements which are mild and not associated with arousals or sleep fragmentation. 7. Obesity, current weight is down to 238. PLAN: 1. Encourage further weight loss. 2. Continue CPAP therapy at a pressure of 11 cm of water. 3. Offer the patient an Air Fit P10 or the nose pillows. 4. See me back in a year's time in followup. For now, his treatment is successful and the patient is extremely compliant with CPAP therapy. MMODL / IJN: [id number] /
== END | disposition home or self-care (01) ==
LOC: SLEEP 15:22
PROVIDERS: ATTEND Internal Medicine Critical Care Medicine
DX: G47.33 Obstructive sleep apnea (adult) (pediatric) (principal); I10 Essential (primary) hypertension; E78.5 Hyperlipidemia, unspecified; E66.9 Obesity, unspecified; Z86.59 Personal history of other mental and behavioral disorders; Z87.39 Personal history of other diseases of the musculoskeletal system and connective tissue; Z99.89 Dependence on other enabling machines and devices

== ENCOUNTER → 2020-10-20 | Outpatient (CLI) | payer BC ==
--- NOTE | 2020-10-24 14:13 | CT ---
EXAMINATION TYPE: CT chest wo con DATE OF EXAM: 10/20/2020 COMPARISON: Radiograph 03/18/2019 HISTORY: 50-year-old male Cough and shortness of breath x3 months. TECHNIQUE: Contiguous axial scanning of the chest without IV contrast. Coronal and sagittal reconstru ctions performed. CT DLP: 663.8 mGycm Automated exposure control for dose reduction was used. FINDINGS: Heart normal size without pericardial effusion. Aorta normal caliber with a bovine configuration to the aortic arch. Scattered nonenlarged mediastinal lymph nodes. No thoracic lymphadenopathy by CT size criteria. 5 mm posterior left upper lobe pulmonary nodule, axial image 23. Some volume loss and atelectasis at the right base. No consolidation or pleural effusion. Asymmetric elevation right hemidiaphragm as seen on radiograph of 2019. Visualized upper abdomen othe rwise shows no gross abnormal body. Bones: DISH within the anterior to mid thoracic spine. IMPRESSION: 1. ASYMMETRIC ELEVATION RIGHT HEMIDIAPHRAGM MAY BE ON THE BASIS OF FOCAL HEMIDIAPHRAGMATIC EVENTRATIO N. IF THERE IS THE POSSIBILITY OF HEMIDIAPHRAGMATIC PARALYSIS, FLUOROSCOPIC SNIFF TEST CAN BE PERFORM ED. 2. A 5 MM POSTERIOR LEFT UPPER LOBE PULMONARY NODULE. 6-[address] MON[address] FOLLOW-UP CT RECOMMENDED TO ENSURE S TABILITY.
== END | disposition home or self-care (01) ==
LOC: RADCTMAIN 18:17
PROVIDERS: ATTEND Internal Medicine
DX: J98.6 Disorders of diaphragm (principal); R91.1 Solitary pulmonary nodule
CPT/HCPCS: 71250

== ENCOUNTER → 2021-01-04 | Outpatient (CLI) | payer BC ==
--- NOTE | 2021-01-04 10:30 | FL ---
Sniff test HISTORY: J 98.6 51 seconds fluoroscopy time, single image obtained Correlation to CT chest 10/20/2020 Attention directed to the hemidiaphragms under real-time fluoroscopy performed CT chest shows liver enlargement, low attenuation suggestive of hepatic steatosis. Right hemidiaphrag m is elevated. There is normal excursion on inspiration. No paradoxical motion of the hemidiaphragms was identified during rapid breathing. IMPRESSION: Hepatomegaly with hepatic steatosis noted on prior CT, no paradoxical hemidiaphragm excur yvette, no evident hemidiaphragm paralysis.
== END ==
LOC: CPPFTMAIN 09:00
PROVIDERS: ATTEND Internal Medicine Critical Care Medicine
DX: J98.6 Disorders of diaphragm (principal)
CPT/HCPCS: 76000; 94060; 94726; 94729

== ENCOUNTER → 2021-07-29 | Outpatient (CLI) | payer BC ==
--- NOTE | 2021-07-30 11:29 | CT ---
EXAMINATION TYPE: CT chest w con DATE OF EXAM: 07/29/2021 COMPARISON: Chest CT October 20, 2020 HISTORY: f/u nodules, prior abnormal CT CT DLP: 645.1 mGycm. Automated Exposure Control for Dose Reduction was Utilized. TECHNIQUE: CT scan of the thorax is performed following with IV Contrast, patient injected with 100 mL of Isovue 300. FINDINGS: LUNGS: Elevated right hemidiaphragm redemonstrated. Stable right basilar linear scarring Stable 4 to 5 mm posterior medial left upper lobe nodule axial image 19. No new greater than 5 mm nodules. No ple ural effusion or pneumothorax seen. MEDIASTINUM: There are no new greater than 1 cm hilar or mediastinal lymph nodes. No cardiomegaly o r pericardial effusion is seen. OTHER: Large bridging osteophytes consistent with DISH redemonstrated. IMPRESSION: Overall stable findings, stable 4 to 5 mm posterior medial left upper lobe nodule presume d benign. No new greater than 5 mm nodules.
== END | disposition home or self-care (01) ==
LOC: RADCTMAIN 17:57
PROVIDERS: ATTEND Internal Medicine Critical Care Medicine
DX: R91.1 Solitary pulmonary nodule (principal)
CPT/HCPCS: 71260; Q9967

== ENCOUNTER 2022-03-03 05:57 | Day surgery (SDC) | payer BC ==
[2022-03-02 11:08] VITALS: BMI 39.9
--- NOTE | 2022-03-03 05:25 | P.GSHP ---
History of Present Illness H&P Date: 03/03/22 CHIEF COMPLAINT: Ventral hernia HISTORY OF PRESENT ILLNESS: The patient is a 51-year-old male presents with a history of swelling and pain along the abdomen from a hernia of the abdomen. Symptoms have been present for over 3 months. Now he presents for surgical intervention. PAST MEDICAL HISTORY: Please see list. PAST SURGICAL HISTORY: Please see list. MEDICATIONS: Please see list. ALLERGIES: Please see list. SOCIAL HISTORY: No illicit drug use FAMILY HISTORY: No reports of Crohn disease or ulcerative colitis. REVIEW OF ORGAN SYSTEMS: CONSTITUTIONAL: No reports of fevers or chills. No reports of weight loss. GI: Denies any blood in stools or constipation. PHYSICAL EXAM: VITAL SIGNS: Stable GENERAL: Well-developed pleasant male in no acute distress. HEENT: No scleral icterus. Extraocular movements grossly intact. Moist buccal mucosa. NECK: Supple without lymphadenopathy. CHEST: Unlabored respirations. Equal bilateral excursions. CARDIOVASCULAR: Regular rate and rhythm. Distal 2+ pulses. ABDOMEN: Soft, nondistended. Palpable defect of the abdomen. No peritoneal signs. MUSCULOSKELETAL: No clubbing, cyanosis, or edema. ASSESSMENT: 1. Ventral hernia PLAN: 1. Recommend proceeding with robotic ventral hernia repair with mesh. 2. Benefits and risks of surgical intervention was discussed including possibility of open technique. 3. DVT prophylaxis. 4. Antibiotic prophylaxis. 5. Non narcotic pain management including abdominal wall block described 6. The patient is at elevated risk for complications with preexisting morbid obesity and hypertension. Past Medical History Past Medical History: Asthma, Chest Pain / Angina, GERD/Reflux, Hyperlipidemia, Hypertension, Sleep Apnea/CPAP/BIPAP Additional Past Medical History / Comment(s): [place] - uses CP[place]; benign colon polyp, diverticulosis. Hx high Hgb. Ventral hernia History of Any Multi-Drug Resistant Organisms: None Reported Past Surgical History: Heart Catheterization, Orthopedic Surgery Additional Past Surgical History / Comment(s): Cardiac cath no stent 2018. Wrist surgery (nerve damage). Jaw surgery. Colonoscopy Past Anesthesia/Blood Transfusion Reactions: No Reported Reaction Smoking Status: Never smoker - Past Family History Mother Family Medical History: Cancer Additional Family Medical History / Comment(s): Mother of thyroid cancer at the age of 80yrs, mets to lung, etc. Father Family Medical History: Coronary Artery Disease (CAD) Additional Family Medical History / Comment(s): Father had a pacemaker. He had a 2 vessel CABG at the age of 77yrs and suffered a stroke with surgery, he 2 yrs later. Medications and Allergies Home Medications Medication Instructions Recorded Confirmed Type Simvastatin [Zocor] 20 mg PO HS 11/08/17 03/02/22 History Albuterol Inhaler [Ventolin Hfa 2 puff INHALATION RT-QID PRN 03/02/22 03/02/22 History Inhaler] Dextroamphetamine/Amphetamine 10 mg PO BID 03/02/22 03/02/22 History [Adderall] Losartan Potassium [Cozaar] 50 mg PO DAILY 03/02/22 03/02/22 History Naproxen Sodium [Naproxen Sodium 500 mg PO DAILY PRN 03/02/22 03/02/22 History ER] Tamsulosin HCl [Flomax] 0.4 mg PO DAILY 03/02/22 03/02/22 History Allergies Allergy/AdvReac Type Severity Reaction Status Date / Time Sulfa (Sulfonamide Allergy Unknown Verified 03/02/22 10:48 Antibiotics)
[~2022-03-03 05:57] MED LIST changes: +ACETAMINOPHEN TAB 500 MG TAB PO PRN; +DEXAMETHASONE SOD PHOSPHATE 4 MG/ML 1 ML VIAL IV ONE; +GABAPENTIN 300 MG CAP PO PRN; +HEPARIN SODIUM,PORCINE/PF 5,000 UNIT/0.5 ML SYRINGE SQ PRN; -LIDOCAINE 1% 20 ML VIAL (10MG/ML) FOR IV START INTRADERMA PRN; +MELOXICAM 7.5 MG TAB PO PRN; +MIDAZOLAM 2 MG/2 ML VIAL IV PRN; +ONDANSETRON 4 MG/2 ML VIAL IVP ONE; +SCOPOLAMINE 1 MG/72 HR PATCH TRANSDERM ONE; +TAMSULOSIN 0.4 MG CAP.ER.24H PO PRN
[2022-03-03 07:19] LABS: ALT 21 U/L (4-49); AST 27 U/L (17-59); African American GFR (CKD) >90 (>60 ml/min/1.73 sqM); Albumin 4.1 g/dL (3.5-5.0); Alkaline Phosphatase 84 U/L (38-126); Anion Gap 7 mmol/L; Blood Urea Nitrogen 18 mg/dL (9-20); Calcium 8.8 mg/dL (8.4-10.2); Carbon Dioxide 25 mmol/L (22-30); Chloride 105 mmol/L (98-107); Glucose 107 mg/dL (74-99); Non-African American GFR(CKD) >90 (>60 ml/min/1.73 sqM); Potassium 4.1 mmol/L (3.5-5.1); Sodium 137 mmol/L (137-145); Total Bilirubin 0.6 mg/dL (0.2-1.3)
[2022-03-03] MEDS ORDERED: fentaNYL (PF) 50 MCG/ML 2 ML AMP IVP ONE (07:19)
[2022-03-03 07:22] LABS: Basophils % (A) 0 %; Eosinophils # (A) 0.1 k/uL (0-0.7); Eosinophils % (A) 2 %; HCT 48.1 % (39.0-53.0); HGB 16.4 gm/dL (13.0-17.5); Lymphocytes # (A) 1.8 k/uL (1.0-4.8); Lymphocytes % (A) 25 %; MCHC 34.1 g/dL (31.0-37.0); MCV 85.1 fL (80.0-100.0); Monocytes # (A) 0.4 k/uL (0-1.0); Monocytes % (A) 6 %; Neutrophils # (A) 4.9 k/uL (1.3-7.7); Neutrophils % (A) 65 %; Platelet Count 217 k/uL (150-450); RBC 5.66 m/uL (4.30-5.90); RDW 13.1 % (11.5-15.5); WBC 7.5 k/uL (3.8-10.6)
[2022-03-03] MEDS ORDERED: ROCURONIUM 10 MG/ML (5 ML VIAL) IV ONE (07:34)
[2022-03-03] MEDS ORDERED: SUCCINYLCHOLINE CHLORIDE VIAL 200 MG/10 ML VIAL IV ONE (07:34)
[2022-03-03] MEDS ORDERED: NEOSTIGMINE 1 MG/ML 10 ML VIAL ONE (07:34)
[2022-03-03] MEDS ORDERED: GLYCOPYRROLATE 0.2 MG/ML 2 ML VIAL ONE (07:34)
[2022-03-03] MEDS ORDERED: SODIUM CHLORIDE 0.9% (PF) 10 ML VIAL ONE (07:34)
[2022-03-03] MEDS ORDERED: ROPIVACAINE 5 MG/ML 30 ML VIAL ONE (07:34)
[2022-03-03] MEDS ORDERED: PROPOFOL 10 MG/ML 20 ML VIAL IV ONE (07:34)
[2022-03-03] MEDS ORDERED: LIDOCAINE 2% INJ 20 MG/ML (2 ML VIAL) ONE (07:34)
[2022-03-03] MEDS ORDERED: MIDAZOLAM 2 MG/2 ML VIAL ONE (07:34)
[2022-03-03] MEDS ORDERED: fentaNYL (PF) 50 MCG/ML 2 ML AMP ONE (07:34)
[2022-03-03] MEDS ORDERED: BUPIVACAIN-EPI 0.25%-1:200,000 30 ML VIAL SQ ONE (08:06)
--- NOTE | 2022-03-03 08:22 | P.ANPRN ---
Procedure Note - Anesthesia - Nerve Block Performed Bilateral Rectus Abdominis Time Out Performed: Yes (07:18) Date of Procedure: 03/03/22 Procedure Start Time: :18 Procedure Stop Time: Location of Patient: PreOp Indication: Acute Post-Operative Pain, Requested by Surgeon (DR Montemayor) Sedation Type: Sedate with meaningful contact maintained Preparation: Sterile Prep Position: Supine Catheter: None Needle Types: Pajunk Needle Gauge: 21 Ultrasound used to visualize needle placement: Yes Ultrasound used to observe medication spread: Yes Injectate: 0.5% Ropivacaine (see comment for volume) (15cc + 10cc PF Normal saline each side) Blood Aspirated: No Pain Paresthesia on Injection Noted: No Resistance on Injection: Normal Image Stored and Saved: Yes Events: Uneventful and Well Tolerated
[2022-03-03] MEDS ORDERED: LACTATED RINGERS 1,000 ML IV ONE (08:29)
--- NOTE | 2022-03-03 08:55 | P.OP ---
Date of Procedure: 03/03/22 Description of Procedure: SURGEON: JOSEFA MONTEMAYOR MD PREOPERATIVE DIAGNOSES: 1. Initial incarcerated umbilical hernia 2. Obstructive sleep apnea 3. Morbid obesity due to excess calories, BMI 41.1 4. Hypertensive heart disease 5. Gastroesophageal reflux disease 6. Hyperlipidemia 7. History of angina 8. Chronic obstructive pulmonary disease due to asthma POSTOPERATIVE DIAGNOSES: 1. Initial incarcerated umbilical hernia, 2-cm 2. Obstructive sleep apnea 3. Morbid obesity due to excess calories, BMI 41.1 4. Hypertensive heart disease 5. Gastroesophageal reflux disease 6. Hyperlipidemia 7. History of angina 8. Chronic obstructive pulmonary disease due to asthma OPERATION: 1. Robotic-assisted da Chris Xi laparoscopic repair of initial incarcerated umbilical hernia with mesh, ventralight ST mesh 11.4 cm Anesthesia: GETA, regional, local Estimated Blood Loss (ml): 5 Pathology: 1. Incarcerated umbilical hernia contents COMPLICATIONS: None. Operative Findings: 1. Umbilical hernia defect 2 x 2 cm 2. Fascia repaired using #1 V-lock suture 3. Incarcerated omentum in umbilicus INDICATIONS: The patient is a 51-year-old male who presents with a personal history of abdominal wall hernia. Surgical intervention with laparoscopic versus robotic and open techniques were reviewed. Placement of mesh was also reviewed. Benefits and risks were thoroughly described. Informed consent was obtained. DESCRIPTION OF PROCEDURE: The patient was brought into the operating room and laid in supine position. After general induction, the abdomen had been prepped and draped in standard sterile fashion. Ioban draping was also placed. Prior to incision, a timeout protocol was confirmed with surgical team regarding the patient's name including procedures to be performed. The robot was primed prior to the procedure. A field block using local anesthetic was placed along hernia site including the proposed port sites. Initial incision was made with an #11 blade along the left upper quadrant. A 0 degree 5 mm laparoscopic trocar entry was performed and insufflated. Three 8 mm ports were placed along the left lateral abdominal wall under direct localization after exchanging the 5-mm for an 8 mm port. Placements of the ports were 15 cm from the target anatomy and 10 cm apart. An accessory 12 mm port was placed at the right upper quadrant for exchange of mesh including sutures. The [employer] robot was previously primed, prepped and draped then docked from the right side of the patient onto the left side of the patient. I then sat at the robot Da Chris Xi console where working arms of the robot including Bovie cautery connected to robotic scissors, needle ambulance driver, and graspers placed by the refinery operator assistant. Incarcerated omental contents were found along the umbilicus. The defect was reduced with preperitoneal fat including omentum. Umbilical hernia defect 2 x 2 cm. The incarcerated contents were reduced as the peritoneal fat was cleaned from the abdominal wall. Next, hemostasis was checked with cautery. The hernia defect was oversewn using #1 nonabsorbable V-lock suture with fascial imbrication x 2. Next, ventralight ST mesh 11.4 cm was placed with the rough side towards the abdominal wall as to cover the defect. 2-0 VLOC absorbable 9 inch sutures were used to fixate the mesh. A final endoscopic imaging was obtained. All instruments and pneumoperitoneum were evacuated from the abdominal cavity. The da Chris Xi robot was undocked from the patient. I re-scrubbed into the case for closure of incisions. The fascia of the 12-mm port was probed and less than 8-mm in size. The incisions were reapproximated using 4-0 Monocryl in an interrupted subcuticular fashion. Liquid glue was applied to the skin after cleansing the skin with normal saline and dilute hydrogen peroxide. An abdominal binder was placed. An umbilical dressing was placed prior. At the end of the procedure, needle, sponge, and instrument count had been verified correct by surgical instrument technician. The patient was taken to the postanesthesia care unit in stable condition. Plan - Discharge Summary Discharge Rx Participant: Yes New Discharge Prescriptions: Continue Simvastatin [Zocor] 20 mg PO HS Naproxen Sodium [Naproxen Sodium ER] 500 mg PO DAILY PRN PRN Reason: Pain Tamsulosin HCl [Flomax] 0.4 mg PO DAILY Dextroamphetamine/Amphetamine [Adderall] 10 mg PO BID Losartan Potassium [Cozaar] 50 mg PO DAILY Albuterol Inhaler [Ventolin Hfa Inhaler] 2 puff INHALATION RT-QID PRN PRN Reason: asthma sx Discharge Medication List Simvastatin [Zocor] 20 mg PO HS 11/08/17 [History] Albuterol Inhaler [Ventolin Hfa Inhaler] 2 puff INHALATION RT-QID PRN 03/02/22 [History] Dextroamphetamine/Amphetamine [Adderall] 10 mg PO BID 03/02/22 [History] Losartan Potassium [Cozaar] 50 mg PO DAILY 03/02/22 [History] Naproxen Sodium [Naproxen Sodium ER] 500 mg PO DAILY PRN 03/02/22 [History] Tamsulosin HCl [Flomax] 0.4 mg PO DAILY 03/02/22 [History] Follow up Appointment(s)/Referral(s): Josefa Montemayor MD [STAFF PHYSICIAN] - 03/07/22 (Telehealth) Patient Instructions/Handouts: *[facility] - Managing Your Pain After Surgery Without Opioids, Laparoscopic Herniorrhaphy (DC), Umbilical Hernia (DC), Abdominal Binder (DC), Weight Management (DC) Activity/Diet/Wound Care/Special Instructions: DO NOT REMOVE UMBILICAL DRESSING. Using antibacterial soap. No lifting over 4 pounds 4 weeks, April 03February shower. No bathtub soaks for 2 weeks, March 17 Wear abdominal binder daily for comfort except for showering. Use ice along incisions for today to prevent swelling. Take tylenol, aleve/ibuprofen, simethicone scheduled for 3 days for best pain relief Discharge Disposition: HOME SELF-CARE
[2022-03-03 09:09] VITALS: TEMP 96.8
[2022-03-03] MEDS ORDERED: KETOROLAC 15 MG/ML 1 ML VIAL IVP ONE (09:15)
[2022-03-03] MEDS: HYDROmorphone 0.5 MG/0.5 ML SYRINGE IVP PRN ×2 (09:18→09:38)
[2022-03-03 10:03] VITALS: RESP 20
[2022-03-03] MEDS ORDERED: ACETAMINOPHEN TAB 500 MG TAB ONE (10:40)
[2022-03-03] MEDS ORDERED: SIMETHICONE 80 MG CHEWABLE PO ONE (10:42)
[2022-03-03] MEDS ORDERED: ACETAMINOPHEN TAB 500 MG TAB PO ONE ×2 (10:42)
[2022-03-03 11:17] VITALS: BP 121/79; PULSE 99
== END 2022-03-03 11:26 | disposition home or self-care (01) ==
LOC: OR 05:57
PROVIDERS: ATTEND Surgery Plastic and Reconstructive Surgery
DX: K42.0 Umbilical hernia with obstruction, without gangrene (principal); I11.9 Hypertensive heart disease without heart failure; E78.5 Hyperlipidemia, unspecified; G47.33 Obstructive sleep apnea (adult) (pediatric); J44.9 Chronic obstructive pulmonary disease, unspecified; E66.01 Morbid (severe) obesity due to excess calories; K21.9 Gastro-esophageal reflux disease without esophagitis; Z68.41 Body mass index [BMI] 40.0-44.9, adult; Z79.899 Other long term (current) drug therapy; Z82.49 Family history of ischemic heart disease and other diseases of the circulatory system; Z88.2 Allergy status to sulfonamides; G89.18 Other acute postprocedural pain
CPT/HCPCS: 49653; 64488; 80053; 85025; 88302; C1781; J2250; J0330; J1100; J2710; J0690; J2405; J3010; J2795; J1885; J2704; J1170; J2001

== ENCOUNTER → 2022-03-30 | Outpatient (CLI) | payer BC ==
--- NOTE | 2022-03-30 15:17 | CT ---
EXAMINATION TYPE: CT chest w con DATE OF EXAM: 03/30/2022 COMPARISON: 07/29/2021, 10/20/2020 HISTORY: 51-year-old male R91.1, LUNG NODULE TECHNIQUE: Contiguous axial scanning of the chest after the administration of 70ml mL of Isovue 300. Coronal/sagittal reconstructions performed. CT DLP: 759mGycm. Automatic exposure control utilized for a dose reduction. FINDINGS: Heart normal size without pericardial effusion. Aorta normal caliber with conventional arch vessel branching anatomy. No thoracic lymph adenopathy by CT size criteria. No consolidation or pleural effusion. Strandy atelectasis of the right base. 5 mm pulmonary nodule posterior left upper lung along the major fissure. Stable for 1.5 years suggest ing a benign intrafissural lymph node. Redemonstrated prominent eventration right hemidiaphragm. Tiny hiatal hernia. Prominent ingested debris within the stomach. 1 cm nonobstructing right renal calculus. Atrophic pancreas. Gallbladder collapsed. Bones: [facility] throughout the mid and lower thoracic spine. IMPRESSION: 1. Stable, benign 5 mm left upper lung pulmonary nodule, likely an intrafissural lymph node given loc ation and stability. 2. Redemonstrated prominent eventration right hemidiaphragm. 3. Tiny hiatal hernia and a 1 cm nonobstructing right renal stone. 4. DISH throughout the mid and lower thoracic spine.
== END | disposition home or self-care (01) ==
LOC: RADCTMAIN 14:08
PROVIDERS: ATTEND Internal Medicine Critical Care Medicine
DX: K20.0 Eosinophilic esophagitis (principal); K44.9 Diaphragmatic hernia without obstruction or gangrene
CPT/HCPCS: 71260; Q9967

== ENCOUNTER → 2023-08-21 | Outpatient (CLI) | payer BC ==
--- NOTE | 2023-08-22 22:37 | US ---
EXAMINATION TYPE: US thyroid st tissue head/neck DATE OF EXAM: 08/21/2023 COMPARISON: NONE CLINICAL INDICATION: Male, 53 years old with history of R22.1 LOCALIZED SWELLING, MASS AND LUMP, NECK ; Thy swelling lump right side GLAND SIZE: Right Lobe: 5.3 x 2.3 2.1 cm Overall Parenchyma: homogeneous Left Lobe: 5.7 x 2.1 x 2.2 cm Overall Parenchyma: homogeneous Isthmus Thickness: .5 cm NODULES RIGHT: # of nodules measured on right: 0 LEFT: # of nodules measured on left: 0 ISTHMUS: # of nodules measured in the isthmus: 0 Bilateral neck scanned, no evidence of lymphadenopathy. No abnormalities seen. IMPRESSION: 1. No suspicious thyroid abnormality
== END | disposition home or self-care (01) ==
LOC: RADUSWWP 15:28
PROVIDERS: ATTEND Internal Medicine
DX: R22.1 Localized swelling, mass and lump, neck (principal)
CPT/HCPCS: 76536

== ENCOUNTER → 2023-10-02 | Outpatient (CLI) | payer BC ==
--- NOTE | 2023-10-02 19:38 | MR ---
EXAMINATION TYPE: MR brain wo/w con DATE OF EXAM: 10/02/2023 6:38 PM CLINICAL INDICATION:Male, 53 years old with history of H93.11 Ear ringing, right; R13.12 Dysphagia; P HH, Humming and ringing in both ears, mostly right COMPARISON: None TECHNIQUE: Multi planar, multi sequence imaging was performed through the brain including: T1, T2, In version recovery, susceptibility weighted imaging and gradient echo imaging and Diffusion weighted im aging. The patient was then given intravenous contrast and multi planar, T1 fat-saturation images wer e obtained. IV Contrast: 12.5 cc Gadavist FINDINGS: The vivar-white junctions, ventricular system, basal cisterns appear unremarkable. Diffusion-weighted imaging shows no evidence of restricted diffusion to suggest acute/subacute infarct. Intracranial ar terial flow voids are maintained. Midline structures show no abnormality. Minimal scattered foci of h igh T2 signal intensity are seen within the periventricular white matter. The susceptibility weighted images do not reveal any evidence for micro-hemorrhage. After administration of gadolinium, no abnor mal enhancement is seen. The bone marrow signal is within normal limits. Paranasal sinuses and mastoid air cells: No significant paranasal sinus disease. Visualized orbits: Orbital contents are intact. The internal auditory canal sequences demonstrate no significant irregularity. The 7th cranial nerve s, 8 cranial nerves, and cerebellar pontine angles appear unremarkable. After the administration marisa olinium, no abnormal enhancement is seen within the internal auditory canals. IMPRESSION: 1. No evidence of internal auditory canal abnormality. Note. Evaluation slightly limited by non inter nal auditory Canal technique. 2. No evidence of intracranial mass, acute/subacute infarct, or abnormal enhancement. 3. Minimal nonspecific white matter changes, likely related to small vessel ischemic disease.
== END | disposition home or self-care (01) ==
LOC: RADMRIMAIN 17:53
PROVIDERS: ATTEND Internal Medicine
DX: H93.11 Tinnitus, right ear (principal); R13.12 Dysphagia, oropharyngeal phase; R90.82 White matter disease, unspecified
CPT/HCPCS: 70553; A9585

== ENCOUNTER → 2023-10-24 | Outpatient (CLI) | payer BC ==
--- NOTE | 2023-10-25 08:36 | FL ---
EXAMINATION TYPE: FL barium swallow DATE OF EXAM: 10/24/2023 10:53 AM COMPARISON: CT 03/30/2022. CLINICAL INDICATION:Male, 53 years old with history of H93.11 Ear ringing, right; R13.12 Dysphagia; P HH, TECHNIQUE: The procedure was explained and patient history elicited. All patient questions were ans wered prior to start of procedure. Multiple spot fluoroscopic images of the esophagus were obtained a fter the oral ingestion of effervescent crystals and liquid barium as the contrast agent. Fluoroscopic time: 1 minute 6 seconds Fluoroscopic images: Radiographs taken: DAP: 3490.09 mGym2 FINDINGS: The esophagus demonstrates normal primary and secondary peristalsis. The esophageal mucosa is smooth without evidence of focal stricture, ulceration, or abnormal outpouching. No gastroesophageal reflu x disease was identified. There is free flow of contrast through the esophagus without evidence for s ignificant retained liquid contrast. IMPRESSION: 1. Free transit of barium into the gastric lumen. No evidence for reflux. 2. Normal esophagram.
== END | disposition home or self-care (01) ==
LOC: RADUSWWP 09:50
PROVIDERS: ATTEND Internal Medicine
DX: R13.12 Dysphagia, oropharyngeal phase (principal); H93.11 Tinnitus, right ear
CPT/HCPCS: 74220

== ENCOUNTER → 2023-12-11 | Outpatient (CLI) | payer BC ==
--- NOTE | 2023-12-11 17:33 | CT ---
EXAMINATION TYPE: CT iac w con DATE OF EXAM: 12/11/2023 COMPARISON: None HISTORY: Ringing in ears. Dizziness, nausea, vomiting. CT DLP: 142.7 mGycm Automated exposure control for dose reduction was used. Contrast: 100 mL Isovue-300. Technique: Axial images 1 mm thick sections. Reconstructed images in the coronal plane. FINDINGS: Mastoid air cells are clear. Incus and malleus have normal orientation bilaterally. Internal auditory canals appear normal without expansion or erosion. No suspicious cerebellar pontine angle masses are evident. Middle ears are clear. External auditory canals are unremarkable. Scutum are normal. Adnexa are clear. Cochlea are unremarkable. Semicircular canals are normal. No suspicious enhancement withi n the [id number] is evident. Maxillary sinuses are clear. Right septal deviation is noted. Ethmoid air cells and sphenoid sinuses within the field of view are clear. Ostiomeatal units are patent. IMPRESSION: 1. NO SUSPICIOUS CHANGES BILATERAL INTERNAL AUDITORY CANALS.
== END | disposition home or self-care (01) ==
LOC: RADCTMAIN 15:55
PROVIDERS: ATTEND Internal Medicine
DX: R42 Dizziness and giddiness (principal); H93.13 Tinnitus, bilateral; R11.2 Nausea with vomiting, unspecified
CPT/HCPCS: 70481; Q9967

== ENCOUNTER → 2024-01-07 | Outpatient (CLI) | payer BC ==
--- NOTE | 2024-01-07 21:30 | XR ---
EXAMINATION TYPE: XR chest 2V DATE OF EXAM: 01/07/2024 4:04 PM CLINICAL INDICATION:Male, 53 years old with history of J09.X2 FLU DUE TO IDENT NOVEL INFLUENZA A VIRU S; [facility] COMPARISON: Chest radiographs from 03/18/2019 TECHNIQUE: XR chest 2V Frontal and lateral views of the chest. FINDINGS: Lungs/Pleura: Similar elevated right diaphragm. There is no evidence of pleural effusion, focal conso lidation, or pneumothorax. Pulmonary vascularity: Unremarkable. Heart/mediastinum: Cardiomediastinal silhouette is unremarkable. Musculoskeletal: No acute osseous pathology. IMPRESSION: No acute cardiopulmonary disease/process.
== END | disposition home or self-care (01) ==
LOC: RADXRMAIN 15:53
PROVIDERS: ATTEND Internal Medicine
DX: J09.X2 Influenza due to identified novel influenza A virus with other respiratory manifestations (principal)
CPT/HCPCS: 71046

== ENCOUNTER → 2024-06-24 | Outpatient (CLI) | payer BC ==
--- NOTE | 2024-06-24 17:56 | CT ---
EXAMINATION TYPE: CT abdomen pelvis wo con DATE OF EXAM: 06/24/2024 COMPARISON: 03/20/2022 INDICATION: right flank pain DLP: 1390 mGycm, Automated exposure control for dose reduction was used. CONTRAST: 0 mL of Isovue 300. Study performed without Oral Contrast TECHNIQUE: Axial images were obtained from above the diaphragm to the pubic rami in the axial plane a t 5 mm thick sections. Reconstructed images are reviewed on the computer in the coronal plane. FINDINGS: Limited CT sections are obtained the lung bases. The lung bases are clear. CT ABDOMEN: Liver: Normal Spleen: Normal Pancreas: Normal Adrenal glands: The adrenal glands are normal. Gallbladder: Normal Kidneys: No masses are evident. No hydronephrosis is present. No cysts are present. There is a non obstructing 1.6 cm mid to upper pole right renal stone. There is a smaller adjacent 0.8 cm calcificat ion which is also nonobstructing. No obstructing renal stones evident. No suspicious calcifications w ithin the left kidney. Aorta: Vascular calcification is within the aorta. Inferior vena cava: Normal. CT PELVIS: Loops of bowel within the abdomen and pelvis are normal. Scattered diverticuli within the sigmoid co jamie. This study is without oral contrast limiting bowel evaluation. Appendix: Normal as visualized. No adjacent inflammatory changes or dilated appendix. Urinary bladder: Normal. Genitourinary structures: Prostate appears unremarkable Osseous structures: No suspicious lytic or sclerotic lesions. COMPARISON: Non obstructing right renal calcifications are new or increased in size from comparison. Previous low density collection near the umbilicus within the intraperitoneal abdomen is not currentl y having. IMPRESSION: 1. New and increased size right nonobstructing renal stones. 2. Diverticulosis without acute diverticulitis.
== END | disposition home or self-care (01) ==
LOC: RADCTMAIN 16:16
PROVIDERS: ATTEND Internal Medicine
DX: N20.0 Calculus of kidney (principal)
CPT/HCPCS: 74176

== ENCOUNTER → 2024-07-04 | Outpatient (CLI) | payer BC ==
[2024-07-04 18:12] LABS: Basophils # (A) 0.04 X 10*3/uL (0.00-0.10); Basophils % (A) 0.6 %; Eosinophils # (A) 0.11 X 10*3/uL (0.04-0.35); Eosinophils % (A) 1.5 %; HCT 45.6 % (39.6-50.0); HGB 15.8 g/dL (13.0-17.0); Lymphocytes # (A) 2.11 X 10*3/uL (0.90-5.00); Lymphocytes % (A) 29.1 %; MCH 29.2 pg (27.0-32.0); MCHC 34.6 g/dL (32.0-37.0); MCV 84.3 FL (80.0-97.0); Mean Platelet Volume 10.9 FL (9.5-12.2); Monocytes # (A) 0.63 X 10*3/uL (0.20-1.00); Monocytes % (A) 8.7 %; NRBC Per 100 WBC 0 X 10*3/uL (0.00-0.01); Neutrophils # (A) 4.32 X 10*3/uL (1.80-7.70); Neutrophils % (A) 59.7 %; Platelet Count 137 X 10*3/uL (140-440); RBC 5.41 X 10*6/uL (4.40-5.60); RDW 13.1 % (11.5-14.5); WBC 7.24 X 10*3/uL (4.50-10.00)
[2024-07-04 19:07] LABS: BUN/Creat Ratio 19.12 Ratio (12.00-20.00); Blood Urea Nitrogen 15.3 mg/dL (9.0-27.0); Calcium 9.1 mg/dL (8.7-10.3); Carbon Dioxide 25.3 mmol/L (21.6-31.8); Chloride 104 mmol/L (96-109); Glucose 85 mg/dL (70-110); Potassium 4.1 mmol/L (3.5-5.5); Sodium 139 mmol/L (135-145)
== END | disposition home or self-care (01) ==
LOC: LABPAT 14:42
PROVIDERS: ATTEND Urology
DX: Z01.818 Encounter for other preprocedural examination
CPT/HCPCS: 80048; 85025

== ENCOUNTER 2024-07-10 08:00 | Day surgery (SDC) | payer BC ==
[2024-07-07 15:56] VITALS: BMI 43.8
--- NOTE | 2024-07-10 06:18 | P.GSHP ---
History of Present Illness H&P Date: 07/10/24 Chief Complaint: Right flank pain The patient is a 54-year-old white male with no prior history of urolithiasis. He presents with a several week history of right flank and right lower abdominal pain. CT scan shows 2 right renal calculi measuring 8 and 16 mm, with no evidence of hydronephrosis. I had a lengthy discussion with the patient regarding the pros and cons of a percutaneous nephrolithotomy versus ureteroscopy with laser lithotripsy. It was explained to him that given the stone burden, a second ureteroscopic procedure could be required. He has elected to go that route. - Constitutional Constitutional: Reports chills - Gastrointestinal Gastrointestinal: Denies nausea, Denies vomiting - Genitourinary (Male) Genitourinary: Reports flank pain, Reports kidney stones, Denies hematuria Past Medical History Past Medical History: Asthma, Chest Pain / Angina, GERD/Reflux, Hyperlipidemia, Hypertension, Sleep Apnea/CPAP/BIPAP Additional Past Medical History / Comment(s): . History of Any Multi-Drug Resistant Organisms: None Reported Past Surgical History: Heart Catheterization, Hernia Repair, Orthopedic Surgery Additional Past Surgical History / Comment(s): Wrist surgery (nerve damage). Jaw surgery. Past Anesthesia/Blood Transfusion Reactions: No Reported Reaction Past Psychological History: ADD/ADHD, Anxiety Additional Psychological History / Comment(s): . Smoking Status: Never smoker Past Alcohol Use History: None Reported Past Drug Use History: None Reported - Past Family History Mother Family Medical History: Cancer Additional Family Medical History / Comment(s): Mother of thyroid cancer at the age of 80yrs, mets to lung, etc. Father Family Medical History: Coronary Artery Disease (CAD) Additional Family Medical History / Comment(s): Father had a pacemaker. He had a 2 vessel CABG at the age of 77yrs and suffered a stroke with surgery, he 2 yrs later. Medications and Allergies Home Medications Medication Instructions Recorded Confirmed Type Simvastatin [Zocor] 40 mg PO DAILY 11/08/17 07/07/24 History Losartan Potassium [Cozaar] 50 mg PO DAILY 03/02/22 07/07/24 History Ezetimibe [Zetia] 10 mg PO DAILY 07/07/24 07/07/24 History Allergies Allergy/AdvReac Type Severity Reaction Status Date / Time Sulfa (Sulfonamide Allergy Unknown Verified 07/07/24 15:49 Antibiotics) Surgical - Exam - General well developed, well nourished, no distress - Respiratory normal respiratory effort - Psychiatric oriented to time, oriented to person, oriented to place, speech is normal, memory intact Results - Imaging CT scan - abdomen: report reviewed, image reviewed Assessment and Plan (1) Calculus of kidney Status: Acute Code(s): N20.0 - CALCULUS OF KIDNEY SNOMED Code(s): 37463350 Plan: Cystoscopy, right ureteroscopy with holmium laser lithotripsy and stone basketing, right ureteral stent insertion. The procedure has been reviewed in detail with the patient and his . They have been made aware of potential risks, which include anesthesia, bleeding, infection, ureteral injury, and inability to completely fragment both calculi.
[~2024-07-10 08:00] MED LIST changes: -ACETAMINOPHEN TAB 500 MG TAB PO PRN; -DEXAMETHASONE SOD PHOSPHATE 4 MG/ML 1 ML VIAL IV ONE; -GABAPENTIN 300 MG CAP PO PRN; -HEPARIN SODIUM,PORCINE/PF 5,000 UNIT/0.5 ML SYRINGE SQ PRN; +HYDROmorphone 0.5 MG/0.5 ML SYRINGE IVP PRN; -LACTATED RINGERS 1,000 ML IV SCH; +LIDOCAINE 1% (10MG/ML) FOR IV START INTRADERMA PRN; -MELOXICAM 7.5 MG TAB PO PRN; -MIDAZOLAM 2 MG/2 ML VIAL IV PRN; -ONDANSETRON 4 MG/2 ML VIAL IVP ONE; -TAMSULOSIN 0.4 MG CAP.ER.24H PO PRN; +droPERidol 5 MG/2 ML VIAL IVP ONE
--- NOTE | 2024-07-10 08:19 | XR ---
EXAMINATION TYPE: XR KUB DATE OF EXAM: 07/10/2024 HISTORY: Pain Comparison: None.Single KUB is submitted for interpretation. Findings: Right renal calculi: Right renal calculus measuring 1.8 x 1.0 cm. Right ureteral calculi: None Visualized. Left renal calculi: None Visualized. Left ureteral calculi: None Visualized. Pelvic calcifications: Pelvic phleboliths noted. Bowel gas pattern is unremarkable. No free air. No mass effects. IMPRESSION: 1. Right renal calculus measuring 1.8 x 1.0 cm.
[2024-07-10] MEDS: IV FLUID CONTINUATION 1,000 ML IV ONE (08:33)
[2024-07-10] MEDS: LACTATED RINGERS 1,000 ML IV SCH (08:41)
[2024-07-10] MEDS: DEXAMETHASONE SOD PHOSPHATE 4 MG/ML 1 ML VIAL IV ONE (08:47)
[2024-07-10] MEDS: ONDANSETRON 4 MG/2 ML VIAL IVP ONE (08:47)
[2024-07-10] MEDS ORDERED: fentaNYL (PF) 50 MCG/ML 2 ML AMP ONE (09:20)
[2024-07-10] MEDS ORDERED: HYDROmorphone (PF) 1 MG/ML ONE (09:20)
[2024-07-10] MEDS ORDERED: LIDOCAINE 1% INJ 10MG/ML (20 ML MDV) ONE (09:20)
[2024-07-10] MEDS ORDERED: KETOROLAC 30 MG/ML 1 ML VIAL ONE (09:20)
[2024-07-10] MEDS ORDERED: ROCURONIUM 10 MG/ML (5 ML VIAL) IV ONE (09:20)
[2024-07-10] MEDS ORDERED: SUCCINYLCHOLINE CHLORIDE 200 MG/10 ML VIAL IV ONE (09:20)
[2024-07-10] MEDS ORDERED: PROPOFOL 10 MG/ML 20 ML VIAL IV ONE (09:20)
[2024-07-10] MEDS ORDERED: MIDAZOLAM 2 MG/2 ML VIAL ONE (09:20)
[2024-07-10] MEDS: ceFAZolin 3 GM in SODIUM CHLORIDE 0.9% 100 ML IVPB PRN (09:24)
[2024-07-10] MEDS: LACTATED RINGERS 1,000 ML IV ONE (10:20)
[2024-07-10 11:34] VITALS: TEMP 97.6
--- NOTE | 2024-07-10 11:53 | P.OP ---
Date of Procedure: 07/10/24 Preoperative Diagnosis: Right renal calculi Postoperative Diagnosis: Same Procedure(s) Performed: Cystoscopy, right ureteroscopy with Holmium laser lithotripsy, right ureteral stent insertion Anesthesia: GETA Surgeon: Luke Warner Estimated Blood Loss (ml): 10 IV fluids (ml): 1,000 Pathology: none sent Condition: stable Disposition: PACU Indications for Procedure: The patient is a 54-year-old white male with no prior history of urolithiasis. He presents with a several week history of right flank and right lower abdominal pain. CT scan shows 2 right renal calculi measuring 8 and 16 mm, with no evidence of hydronephrosis. I had a lengthy discussion with the patient regarding the pros and cons of a percutaneous nephrolithotomy versus ureteroscopy with laser lithotripsy. It was explained to him that given the stone burden, a second ureteroscopic procedure could be required. He has elected to go that route. Operative Findings: 2 right renal calculi, dusted completely. Description of Procedure: The patient was taken to the operating room and placed in the dorsolithotomy position, with legs supported in Maxi stirrups. The external genitalia was prepped and draped sterilely. The 30 lens was used to introduce the 21-Fijian Tidwell cystoscopic sheath through the urethra and into the bladder under direct vision. The prostatic urethra showed evidence of mild lateral lobe enlargement. The bladder was examined in its entirety. Both ureteral orifices were normal anatomic location and configuration, and clear urine effluxed from both. No tumors or foreign bodies were seen. A 0.038 inch Glidewire was passed through the cystoscope. The right ureteral orifice was cannulated, and the Glidewire was advanced up to the renal pelvis. The cystoscope was removed, and an 11/13- Fijian ureteral access catheter was passed over the wire, up to the mid ureter. The Tidwell ProChon Biotechra flexible ureteroscope was then passed through the ureteral access catheter sheath and advanced under direct vision. Narrowing was noted at the level of L3-L4, and the ureteroscope could not be passed through this short narrowed segment. The ureteroscope was removed, and the Glidewire was replaced through the access catheter sheath. The obturator was then passed through the sheath, and the access catheter was advanced beyond the area of narrowing. The ureteroscope was then passed. A longitudinal, superficial mucosal tear was seen within the ureter. The ureteroscope was advanced beyond that point and up to the right renal pelvis, where the large calculus was identified. The 272 micron Holmium laser probe was passed through the ureteroscope, and lithotripsy was performed utilizing a dusting mode. A second smaller calculus was adjacent to the large calculus, and this was also dusted. Dusting was continued until there were no residual calculus fragments exceeding the size of the laser fiber tip. The Glidewire was then passed through the ureteroscope, which was withdrawn under direct vision. Pullout ureteroscopy showed no evidence of ureteral trauma other than what was previously mentioned. After removing the ureteroscope, the Glidewire was backloaded into the cystoscope, which was passed into the bladder. A 26 cm, 6 Fijian double-J ureteral stent was placed over the wire. Proper stent positioning was verified fluoroscopically and endoscopically. The bladder was emptied and the cystoscope removed. The patient tolerated the procedure well and was taken to the recovery room in stable condition. MUSIC ROCKS Report: Procedure Acuity: Semi-Urgent Stone Size and Location: 10 x 18 mm, right renal pelvis Ureteral Dilation: Serial Dilation Ureteral Access Sheath Used: Yes Stone Sent for Analysis: No All Stones/Fragments Were Removed with a Basket: No Complications: No Preoperative Antibiotics Given: Yes Stent Placed: Yes If Stent Placed, Was String Left Attached: No If Stent Placed, When is it to be Removed: 2 weeks Discharge Medications: Toradol, tamsulosin
[2024-07-10 13:21] VITALS: BP 143/76; PULSE 96; RESP 18
--- NOTE | 2024-07-31 10:36 | FL ---
EXAMINATION TYPE: FL guidance operating room DATE OF EXAM: 07/10/2024 11:38 AM COMPARISON: Pre Operative Images if available both CT/MRI or plain film CLINICAL INDICATION: Male, 54 years old with history of RIGHT RENAL CALCULI; TECHNIQUE: FL guidance operating room, multiple fluoroscopic images provided for procedure. Total fluoroscopy time: 24 sec Total submitted images to PACS: 4 DAP: 0.34205 mGym2 Gycm2 uGym2 cGycm2 or equivalent. FINDINGS: Multiple intraoperative fluoroscopic images were taken resulting in ureteral stent placement with sup erior pigtail in appropriate position projecting over the renal pelvis. No immediate intraoperative c omplication. Multilevel degeneration changes throughout the spine. IMPRESSION: 1. No evidence for intraoperative complication. 2. Please see the operative/procedural note for further details. [facility], , 07/31/2024 10:33 AM
== END 2024-07-10 13:44 | disposition home or self-care (01) ==
LOC: OR 08:00
PROVIDERS: ATTEND Urology
DX: N20.0 Calculus of kidney (principal); E78.5 Hyperlipidemia, unspecified; G47.30 Sleep apnea, unspecified; I10 Essential (primary) hypertension; J45.909 Unspecified asthma, uncomplicated; K21.9 Gastro-esophageal reflux disease without esophagitis; Z88.1 Allergy status to other antibiotic agents; Z88.2 Allergy status to sulfonamides; Z98.890 Other specified postprocedural states; Z79.899 Other long term (current) drug therapy
CPT/HCPCS: 74018

== ENCOUNTER 2024-10-24 08:56 | Day surgery (SDC) | payer BC ==
[2024-10-24] MEDS: IV FLUID CONTINUATION 1,000 ML IV ONE (09:23)
[2024-10-24 09:26] LABS: Glucose,Whole Blood 97 mg/dL (70-110)
[2024-10-24 09:29] VITALS: TEMP 97
[2024-10-24] MEDS: LACTATED RINGERS 1,000 ML IV SCH (09:33)
[2024-10-24] MEDS ORDERED: PROPOFOL 10 MG/ML 20 ML VIAL IV ONE (10:45)
--- NOTE | 2024-10-24 10:59 | P.PCN ---
Date of Procedure: 10/24/24 Procedure(s) Performed: BRIEF HISTORY: Patient is a 54-year-old pleasant white male scheduled for an elective colonoscopy as a part of evaluation change in bowel habits for the last 6 months duration. PROCEDURE PERFORMED: Colonoscopy. PREOPERATIVE DIAGNOSIS: Change in bowel habits. IV sedation per Anesthesia. PROCEDURE: After informed consent was obtained, the patient, was brought into the endoscopy unit. IV sedation was administered by Anesthesia under continuous monitoring. Digital rectal examination was normal. Initially the Olympus CF-160 flexible video colonoscope was then inserted in the rectum, gradually advanced into the cecum without any difficulty. Careful examination was performed as the scope was gradually being withdrawn. Ileocecal valve and the appendiceal orifice were visualized and appeared normal. Prep was excellent. Mucosa of the cecum, ascending colon, transverse colon, descending colon, sigmoid colon, and rectum appeared normal. Retroflexion was performed in the rectum and no lesions were seen. The patient tolerated the procedure well. IMPRESSION: Normal-appearing colon from rectum to cecum no colitis or colorectal neoplasia. RECOMMENDATIONS: Findings of this examination were discussed with the patient as well as his family. He was advised to start MiraLAX 1 scoop daily and titrate the dose. Recommend repeat colonoscopy in 10 years..
[2024-10-24 11:08] VITALS: RESP 16
[2024-10-24 11:40] VITALS: BP 119/72; PULSE 98
== END 2024-10-24 11:30 | disposition home or self-care (01) ==
LOC: ORWHC2ENDO 08:56
PROVIDERS: ATTEND Internal Medicine Gastroenterology
DX: R19.4 Change in bowel habit (principal); I10 Essential (primary) hypertension; E78.5 Hyperlipidemia, unspecified; G47.33 Obstructive sleep apnea (adult) (pediatric); J45.909 Unspecified asthma, uncomplicated; F98.8 Other specified behavioral and emotional disorders with onset usually occurring in childhood and adolescence; F41.9 Anxiety disorder, unspecified; E66.01 Morbid (severe) obesity due to excess calories; Z79.85 Long-term (current) use of injectable non-insulin antidiabetic drugs; Z79.899 Other long term (current) drug therapy; Z88.2 Allergy status to sulfonamides
CPT/HCPCS: 45378; J2704

== ENCOUNTER → 2025-01-16 | Outpatient (CLI) | payer BC ==
--- NOTE | 2025-01-16 14:13 | XR ---
EXAMINATION TYPE: XR chest 2V DATE OF EXAM: 01/16/2025 2:04 PM COMPARISON: 01/07/2024 CLINICAL INDICATION: Male, 54 years old with history of J06.9 ACUTE UPPER RESPIRATORY INFECTION, UNSP ECIFI: Shortness of breath TECHNIQUE: XR chest 2V views of the chest are obtained. FINDINGS: Scattered senescent parenchymal changes noted. Hyperinflation compatible with COPD. Chronic elevation right hemidiaphragm. No evidence for infiltrate. No evidence for atelectasis. Heart size is stable. Mediastinal structures are stable and grossly unremarkable. No evidence for hilar prominence. Degenerative changes dorsal spine. IMPRESSION: 1. No evidence for acute pulmonary disease. [facility], , 01/16/2025 2:11 PM
== END | disposition home or self-care (01) ==
LOC: RADXRMAIN 13:54
PROVIDERS: ATTEND Internal Medicine
DX: J06.9 Acute upper respiratory infection, unspecified (principal)
CPT/HCPCS: 71046